=== PATIENT | female | born 1990 | race Caucasian/White ===

== ENCOUNTER 2016-08-03 10:06 | Emergency (ER) | payer OTHER ==
[2016-08-03 10:13] VITALS: BP 111/74; PULSE 80; TEMP 98.1
[2016-08-03 10:38] VITALS: RESP 16
--- NOTE | 2016-08-03 10:49 | ED ---
General Adult HPI - General Chief complaint: Upper Respiratory Infection Stated complaint: congestion Time Seen by Provider: 08/03/16 10:24 Source: patient, RN notes reviewed, old records reviewed Mode of arrival: ambulatory Limitations: no limitations - History of Present Illness Initial comments: This is a 25 female to the ED co being sick not feeling well with cough and congestion. Patient denies sick contacts or travel history, no recent fevers. Patient denies any chest pain denies any shortness of breath no bowel pain, denies . Patient's no modifying factors for symptoms at home, states her symptoms of progressively worsening to 3 days, again no nausea vomiting. No diarrhea. This feels upper respiratory infection, with congestion - Related Data Home Medications Medication Instructions Recorded Confirmed Dm/PE/Acetaminophen/Doxylamine 2 cap PO Q8H PRN 08/03/16 08/03/16 [[facility] [facility]] Previous Rx's Medication Instructions Recorded Amoxicillin 500 mg PO Q8H #30 capsule 08/03/16 Fluticasone Nasal [place] [Flonase 2 spr EA NOSTRIL DAILY #1 bottle 08/03/16 Nasal [place]] Pseudoephedrine HCl [Sudafed 240 mg PO BID #30 tab.er.24h 08/03/16 24-Hour] Allergies Allergy/AdvReac Type Severity Reaction Status Date / Time cefaclor [From Ceclor] Allergy Unknown Verified 08/03/16 10:35 Childhood diphenhydramine Allergy Unknown Verified 08/03/16 10:35 [From Benadryl] Childhood gluten Allergy Unknown Verified 08/03/16 10:35 Review of Systems ROS Statement: Those systems with pertinent positive or pertinent negative responses have been documented in the HPI. ROS Other: All systems not noted in ROS Statement are negative. Past Medical History Past Medical History: No Reported History History of Any Multi-Drug Resistant Organisms: None Reported Past Surgical History: No Surgical Hx Reported Past Psychological History: No Psychological Hx Reported Smoking Status: Current every day smoker Past Alcohol Use History: Occasional Past Drug Use History: None Reported General Exam Limitations: no limitations General appearance: alert, in no apparent distress Head exam: Present: atraumatic, normocephalic, normal inspection Eye exam: Present: normal appearance, PERRL, EOMI. Absent: scleral icterus, conjunctival injection, periorbital swelling ENT exam: Present: normal exam, mucous membranes moist Neck exam: Present: normal inspection. Absent: tenderness, meningismus, lymphadenopathy Respiratory exam: Present: normal lung sounds bilaterally. Absent: respiratory distress, wheezes, rales, rhonchi, stridor Cardiovascular Exam: Present: regular rate, normal rhythm, normal heart sounds. Absent: systolic murmur, diastolic murmur, rubs, gallop, clicks GI/Abdominal exam: Present: soft, normal bowel sounds. Absent: distended, tenderness, guarding, rebound, rigid Extremities exam: Present: normal inspection, full ROM, normal capillary refill. Absent: tenderness, pedal edema, joint swelling, calf tenderness Back exam: Present: normal inspection Neurological exam: Present: alert, oriented X3, CN II-XII intact Psychiatric exam: Present: normal affect, normal mood Skin exam: Present: warm, dry, intact, normal color. Absent: rash Course Vital Signs 08/03/16 08/03/16 10:11 10:35 Temperature 98.1 F Pulse Rate 80 Respiratory 20 16 Rate Blood Pressure 111/74 O2 Sat by Pulse 98 Oximetry Medical Decision Making - Medical Decision Making 25 female here for evaluation of upper respiratory infection, sinusitis. Patient given appropriate antibiotic and symptoms activity, this time is doing better no acute distress patient can be discharged home Disposition Clinical Impression: Upper respiratory infection, Sinusitis Disposition: HOME SELF-CARE Condition: Good Instructions: Sinusitis (ED) Prescriptions: Amoxicillin 500 mg PO Q8H #30 capsule Fluticasone Nasal [place] [Flonase Nasal [place]] 2 spr EA NOSTRIL DAILY #1 bottle Pseudoephedrine HCl [Sudafed 24-Hour] 240 mg PO BID #30 tab.er.24h Referrals: None,Stated [Primary Care Provider] - 1-2 days
== END 2016-08-03 10:58 | disposition home or self-care (01) ==
LOC: EC 10:06
DX: J01.90 Acute sinusitis, unspecified (principal); F17.200 Nicotine dependence, unspecified, uncomplicated; Z88.1 Allergy status to other antibiotic agents; Z88.8 Allergy status to other drugs, medicaments and biological substances
CPT/HCPCS: 99283

== ENCOUNTER 2016-11-27 14:34 | Emergency (ER) | payer OTHER ==
[2016-11-27 14:40] VITALS: BP 119/72; PULSE 108; RESP 18; TEMP 98
--- NOTE | 2016-11-27 14:59 | ED ---
General Adult HPI - General Chief complaint: Anxiety Stated complaint: Anxiety Time Seen by Provider: 11/27/16 14:47 Source: patient, RN notes reviewed Mode of arrival: ambulatory Limitations: no limitations - History of Present Illness Initial comments: Patient's a 26-year-old female who presents emergency room today with a chief complaint of increased anxiety. Patient states that she's had a history of anxiety for many years. She states it seems to be increasing more recently this past month. She states that she is going through approximately about 70% of her headache feeling very anxious. She states that there is not anything specific that seems to be triggering these episodes. She states in the past she 's really keep herself calm and that would help with the symptoms. She states recently seems to be increasing. She states does not have a family doctor was unsure which type attack states that she came to the emergency room. - Related Data Home Medications Medication Instructions Recorded Confirmed Dm/PE/Acetaminophen/Doxylamine 2 cap PO Q8H PRN 08/03/16 08/03/16 [[facility] [facility]] Previous Rx's Medication Instructions Recorded Amoxicillin 500 mg PO Q8H #30 capsule 08/03/16 Fluticasone Nasal [place] [Flonase 2 spr EA NOSTRIL DAILY #1 bottle 08/03/16 Nasal [place]] Pseudoephedrine HCl [Sudafed 240 mg PO BID #30 tab.er.24h 08/03/16 24-Hour] ALPRAZolam [Xanax] 0.5 mg PO BID PRN #10 tablet 11/27/16 Allergies Allergy/AdvReac Type Severity Reaction Status Date / Time cefaclor [From Ceclor] Allergy Unknown Verified 11/27/16 14:40 Childhood diphenhydramine Allergy Unknown Verified 11/27/16 14:40 [From Benadryl] Childhood gluten Allergy Unknown Verified 11/27/16 14:40 Review of Systems ROS Statement: Those systems with pertinent positive or pertinent negative responses have been documented in the HPI. ROS Other: All systems not noted in ROS Statement are negative. Past Medical History Past Medical History: No Reported History History of Any Multi-Drug Resistant Organisms: None Reported Past Surgical History: No Surgical Hx Reported Past Psychological History: Anxiety Smoking Status: Current every day smoker Past Alcohol Use History: Occasional Past Drug Use History: None Reported General Exam - General Exam Comments Initial Comments: General: The patient is awake and alert, in no distress, and does not appear acutely ill. Eye: Pupils are equal, round and reactive to light, extra-ocular movements are intact. No nystagmus. There is normal conjunctiva bilaterally. No signs of icterus. Ears, nose, mouth and throat: There are moist mucous membranes and no oral lesions. Neck: The neck is supple, there is no tenderness or JVD. Cardiovascular: There is a regular rate and rhythm. No murmur, rub or gallop is appreciated. Respiratory: Lungs are clear to auscultation, respirations are non-labored, breath sounds are equal. No wheezes, stridor, rales, or rhonchi. Musculoskeletal: Normal ROM, no tenderness. Strength 5/5. Sensation intact. Pulses equal bilaterally 2+. Neurological: A&O x 3. CN II-XII intact, There are no obvious motor or sensory deficits. Coordination appears grossly intact. Speech is normal. Skin: Skin is warm and dry and no rashes or lesions are noted. Psychiatric: Cooperative, appropriate mood & affect, normal judgment. Limitations: no limitations Course Vital Signs 11/27/16 14:37 Temperature 98.0 F Pulse Rate 108 H Respiratory 18 Rate Blood Pressure 119/72 O2 Sat by Pulse 97 Oximetry Medical Decision Making - Medical Decision Making Patient examined here in the emergency room show no signs of distress. She denies any complaints currently at this time. She states she has been having these episodes more frequently. She states she's never been on medication. States she does not have a family doctor. Was discussed with patient about the effects of medication. Advised patient possibly follow-up with a therapist in constant persist she has seen in the past without much help. Patient given a short prescription of Xanax here in the emergency room advised that it may make her drowsy and to not drive while using this medication. Advised to follow-up with family doctor for further evaluation and medications. Advised return for any other concerns. She states understanding and is in agreement. Disposition Clinical Impression: Acute anxiety Disposition: HOME SELF-CARE Condition: Good Instructions: Generalized Anxiety Disorder (ED) Additional Instructions: Please use medication as prescribed and be aware that it may make you drowsy. Please follow-up with the family doctor over the next 2-5 days as discussed. Please return here to emergency room if symptoms increase or worsen or for any other concerns. Prescriptions: ALPRAZolam [Xanax] 0.5 mg PO BID PRN #10 tablet PRN Reason: Anxiety Referrals: None,Stated [Primary Care Provider] - 1-2 days Jael Betts MD [STAFF PHYSICIAN] - 1-2 days Time of Disposition: 14:57
== END 2016-11-27 15:10 | disposition home or self-care (01) ==
LOC: EC 14:34
DX: F41.9 Anxiety disorder, unspecified (principal); R51 Headache; F17.200 Nicotine dependence, unspecified, uncomplicated; Z88.1 Allergy status to other antibiotic agents; Z88.8 Allergy status to other drugs, medicaments and biological substances; Z91.018 Allergy to other foods
CPT/HCPCS: 99283

== ENCOUNTER 2017-02-22 16:17 | Emergency (ER) | payer OTHER ==
[2017-02-22 16:22] VITALS: BP 117/71; PULSE 74; RESP 18; TEMP 99
--- NOTE | 2017-02-22 16:30 | ED ---
URI HPI - General Chief Complaint: Upper Respiratory Infection Stated Complaint: Cold/congestion Time Seen by Provider: 02/22/17 16:25 Source: patient, RN notes reviewed Mode of arrival: ambulatory Limitations: no limitations - History of Present Illness Initial Comments: This a 26-year-old female presents emergency Department chief complaint of nasal congestion and cough for last 3 days. Patient states it started with sore throat which turned into sinus congestion. Suture sore throat has improved at this time. She states she's tried some [id number] medications minimal relief. Denies fever, chills, headache or dizziness. She states her usual. She states cough is worse when she eats upper morning and seems to subside throughout the day. Patient denies any known sick contacts. - Related Data Previous Rx's Medication Instructions Recorded ALPRAZolam [Xanax] 0.5 mg PO BID PRN #10 tablet 11/27/16 Fluticasone Nasal [place] [Flonase 2 spr EA NOSTRIL DAILY #1 bottle 02/22/17 Nasal [place]] Promethaz-Cod 6.25-10 mg/5 ml 5 ml PO Q6HR PRN #120 ml 02/22/17 [Phenergan with Codeine] Pseudoephedrine 12Hr [Sudafed 12 120 mg PO Q12H #1 box 02/22/17 Hour] Allergies Allergy/AdvReac Type Severity Reaction Status Date / Time cefaclor [From Ceclor] Allergy Unknown Verified 02/22/17 16:22 Childhood diphenhydramine Allergy Unknown Verified 02/22/17 16:22 [From Benadryl] Childhood gluten Allergy Unknown Verified 02/22/17 16:22 Review of Systems ROS Statement: Those systems with pertinent positive or pertinent negative responses have been documented in the HPI. ROS Other: All systems not noted in ROS Statement are negative. Past Medical History Past Medical History: No Reported History History of Any Multi-Drug Resistant Organisms: MRSA Date of last positivie culture/infection: 2014 MDRO Source:: Right arm Past Surgical History: Tonsillectomy Past Psychological History: Anxiety Smoking Status: Current every day smoker Past Alcohol Use History: Occasional Past Drug Use History: None Reported General Exam Limitations: no limitations General appearance: alert, in no apparent distress Head exam: Present: atraumatic, normocephalic, normal inspection Eye exam: Present: normal appearance, PERRL, EOMI. Absent: scleral icterus, conjunctival injection, periorbital swelling ENT exam: Present: normal oropharynx, mucous membranes moist, TM's normal bilaterally, normal external ear exam. Absent: normal exam (Minimal nasal congestion) Neck exam: Present: normal inspection, full ROM. Absent: tenderness, meningismus, lymphadenopathy Respiratory exam: Present: normal lung sounds bilaterally. Absent: respiratory distress, wheezes, rales, rhonchi, stridor Cardiovascular Exam: Present: regular rate, normal rhythm, normal heart sounds. Absent: systolic murmur, diastolic murmur, rubs, gallop, clicks Course Vital Signs 02/22/17 16:19 Temperature 99.0 F Pulse Rate 74 Respiratory 18 Rate Blood Pressure 117/71 O2 Sat by Pulse 100 Oximetry Medical Decision Making - Medical Decision Making 26-year-old female presented for URI symptoms. Patient does not have any signs of acute bacterial infection. Patient's symptoms have been present last 3 days. Patient has a viral URI and will be prescribed medications help her symptoms at this time she is advised to increase her fluids and follow-up with primary care physician. Disposition Clinical Impression: Upper respiratory infection Disposition: HOME SELF-CARE Condition: Stable Instructions: Upper Respiratory Infection (ED) Additional Instructions: Please return to the Emergency Department if symptoms worsen or any other concerns. Prescriptions: Fluticasone Nasal [place] [Flonase Nasal [place]] 2 spr EA NOSTRIL DAILY #1 bottle Promethaz-Cod 6.25-10 mg/5 ml [Phenergan with Codeine] 5 ml PO Q6HR PRN #120 ml PRN Reason: Cough Pseudoephedrine 12Hr [Sudafed 12 Hour] 120 mg PO Q12H #1 box Referrals: None,Stated [Primary Care Provider] - 1-2 days Time of Disposition: 16:30
== END 2017-02-22 16:54 | disposition home or self-care (01) ==
LOC: EC 16:17
DX: J06.9 Acute upper respiratory infection, unspecified (principal); F17.200 Nicotine dependence, unspecified, uncomplicated; Z86.14 Personal history of Methicillin resistant Staphylococcus aureus infection; Z88.1 Allergy status to other antibiotic agents; Z88.8 Allergy status to other drugs, medicaments and biological substances
CPT/HCPCS: 99283

== ENCOUNTER 2017-05-09 14:04 | Emergency (ER) | payer OTHER ==
[2017-05-09 14:11] VITALS: BP 118/59; PULSE 97; RESP 18; TEMP 98
--- NOTE | 2017-05-09 15:25 | ED ---
General Adult HPI - General Chief complaint: Back Pain/Injury Stated complaint: Back Pain Time Seen by Provider: 05/09/17 14:39 Source: patient, RN notes reviewed Mode of arrival: ambulatory Limitations: no limitations - History of Present Illness Initial comments: 26-year-old female presents emergency department with a chief complaint of low back pain. Patient states she woke up 2 days ago and when she went to get out of bed and she started to have pain in her back. Patient states that she is not having loss by bladder function or any saddle anesthesia with this. Patient denies any nausea vomiting any changes in urination. Patient states that she does get back pain from time to time but she was concerned because she just continued to have this discomfort she was at work today and it was making her daughter works and she decided to come to be seen. She states is in her lower back. She states that moving bending twisting makes the pain worse. She denies any other symptoms at this time. She states the pain is moderate there is some radiation link sensory movements. Patient denies any recent fever, chills, shortness of breath, chest pain, abdominal pain, nausea vomiting, numbness or tingling, dysuria or hematuria, constipation or diarrhea, headaches or visual changes, or any other current symptoms. - Related Data Previous Rx's Medication Instructions Recorded ALPRAZolam [Xanax] 0.5 mg PO BID PRN #10 tablet 11/27/16 Ibuprofen [Motrin] 600 mg PO Q6HR PRN #20 tab 05/09/17 Orphenadrine [Norflex] 100 mg PO Q12H #10 tablet.er 05/09/17 Allergies Allergy/AdvReac Type Severity Reaction Status Date / Time cefaclor [From Ceclor] Allergy Unknown Verified 05/09/17 14:09 Childhood diphenhydramine Allergy Unknown Verified 05/09/17 14:09 [From Benadryl] Childhood gluten Allergy Unknown Verified 05/09/17 14:09 Review of Systems ROS Statement: Those systems with pertinent positive or pertinent negative responses have been documented in the HPI. ROS Other: All systems not noted in ROS Statement are negative. Past Medical History Past Medical History: No Reported History History of Any Multi-Drug Resistant Organisms: MRSA Date of last positivie culture/infection: 2014 MDRO Source:: Right arm Past Surgical History: Tonsillectomy Past Psychological History: Anxiety Smoking Status: Current every day smoker Past Alcohol Use History: Occasional Past Drug Use History: None Reported General Exam Limitations: no limitations General appearance: alert, in no apparent distress ENT exam: Present: normal exam, mucous membranes moist Neck exam: Present: normal inspection. Absent: tenderness, meningismus, lymphadenopathy Respiratory exam: Present: normal lung sounds bilaterally. Absent: respiratory distress, wheezes, rales, rhonchi, stridor Cardiovascular Exam: Present: regular rate, normal rhythm, normal heart sounds. Absent: systolic murmur, diastolic murmur, rubs, gallop, clicks Back exam: Present: normal inspection, full ROM, other (PositiveLateral straight leg raise). Absent: tenderness Neurological exam: Present: alert, oriented X3 Psychiatric exam: Present: normal affect, normal mood Skin exam: Present: warm, dry, intact, normal color. Absent: rash Course Vital Signs 05/09/17 14:09 Temperature 98.0 F Pulse Rate 97 Respiratory 18 Rate Blood Pressure 118/59 O2 Sat by Pulse 100 Oximetry Medical Decision Making - Medical Decision Making 26-year-old female presents with what appears to be lumbar strain. This time we discussed anti-inflammatories and muscle relaxers for home. We discussed follow-up return parameters all results. Patient stated she understood and she is given this plan. All questions have been answered. She will be discharged. - Lab Data Lab Results 05/09/17 Range/Units 14:54 Urine HCG, Qual Not Detected (Not Detectd) - Radiology Data Radiology results: report reviewed, image reviewed Disposition Clinical Impression: Lumbar strain Disposition: HOME SELF-CARE Condition: Stable Instructions: Low Back Strain (ED), Lower Back Exercises (ED) Additional Instructions: Please use medication as discussed. Please follow up with family doctor if symptoms have not improved over the next two days. Please return to the emergency room if your symptoms increase or worsen or for any other concerns. Prescriptions: Ibuprofen [Motrin] 600 mg PO Q6HR PRN #20 tab PRN Reason: Pain Orphenadrine [Norflex] 100 mg PO Q12H #10 tablet.er Referrals: Carlo Savage MD [STAFF PHYSICIAN] - 1-2 days Time of Disposition: 15:32
--- NOTE | 2017-05-09 15:28 | XR ---
Lumbar spine HISTORY: Low back pain 3 views of the lumbar spine Lumbar vertebral bodies show preserved height, alignment, and bone mineralization. Some mild dextrosc oliosis noted at L4. Loss of disc height present L5-S1, L4-5. IMPRESSION: There may be degenerative disc disease, there is possibly scoliosis, correlate, consider lumbar MRI
== END 2017-05-09 15:56 | disposition home or self-care (01) ==
LOC: EC 14:04
DX: S39.012A Strain of muscle, fascia and tendon of lower back, initial encounter (principal); F17.200 Nicotine dependence, unspecified, uncomplicated; Z86.14 Personal history of Methicillin resistant Staphylococcus aureus infection; Z88.1 Allergy status to other antibiotic agents; Z88.8 Allergy status to other drugs, medicaments and biological substances; X58.XXXA Exposure to other specified factors, initial encounter
CPT/HCPCS: 72100; 81025; 99283

== ENCOUNTER 2017-05-13 16:24 | Emergency (ER) | payer OTHER ==
[2017-05-13] MEDS ORDERED: SODIUM CHLORIDE 0.9% 1,000 ML IV STA (17:10)
[2017-05-13] MEDS ORDERED: KETOROLAC 30 MG/ML 1 ML VIAL IVP STA (17:10)
[2017-05-13] MEDS ORDERED: SODIUM CHLORIDE 0.9% 500 ML IV STA (17:10)
--- NOTE | 2017-05-13 17:15 | ED ---
Back Pain HPI - General Chief Complaint: Back Pain/Injury Stated Complaint: Back Pain Time Seen by Provider: 05/13/17 17:01 Source: patient, RN notes reviewed, old records reviewed Limitations: no limitations - History of Present Illness Initial Comments: Patient is a 26-year-old female presents emergency department for revisit of her back pain. Patient reports that she was seen earlier this week and discharged with Motrin and muscle relaxers. She reports that her pain is continuing to persist. She states is worse with certain movements including twisting and straight leg raises. Patient states that she does a job or she is on her feet all the time. Patient reports that she's also had some fevers and feels chilled. She questions to possible urinary symptoms as in dysuria. She states that occasionally her back will seem to go numb but still be in pain at the same time. Patient states that she's had no saddle anesthesias, denies any chest pain, shortness of breath, nausea or vomiting. Patient states that she has had some occasional lower abdominal pain, denies any specific pain or pressure. - Related Data Previous Rx's Medication Instructions Recorded ALPRAZolam [Xanax] 0.5 mg PO BID PRN #10 tablet 11/27/16 Ibuprofen [Motrin] 600 mg PO Q6HR PRN #20 tab 05/09/17 Orphenadrine [Norflex] 100 mg PO Q12H #10 tablet.er 05/09/17 Cyclobenzaprine [Flexeril] 10 mg PO TID #15 tab 05/13/17 traMADol HCl [Ultram] 50 mg PO Q6H PRN #15 tab 05/13/17 Allergies Allergy/AdvReac Type Severity Reaction Status Date / Time cefaclor [From Ceclor] Allergy Unknown Verified 05/13/17 16:44 Childhood diphenhydramine Allergy Unknown Verified 05/13/17 16:44 [From Benadryl] Childhood gluten Allergy Unknown Verified 05/13/17 16:44 Review of Systems ROS Statement: Those systems with pertinent positive or pertinent negative responses have been documented in the HPI. ROS Other: All systems not noted in ROS Statement are negative. Past Medical History Past Medical History: No Reported History History of Any Multi-Drug Resistant Organisms: MRSA Date of last positivie culture/infection: 2014 MDRO Source:: Right arm Past Surgical History: Tonsillectomy Past Psychological History: Anxiety Smoking Status: Current every day smoker Past Alcohol Use History: Occasional Past Drug Use History: None Reported General Exam - General Exam Comments Initial Comments: 26-year-old female. No acute distress. Limitations: no limitations General appearance: alert, in no apparent distress Head exam: Present: atraumatic, normocephalic, normal inspection Eye exam: Present: normal appearance, PERRL, EOMI. Absent: scleral icterus, conjunctival injection, periorbital swelling ENT exam: Present: normal exam, mucous membranes moist Neck exam: Present: normal inspection. Absent: tenderness, meningismus, lymphadenopathy Respiratory exam: Present: normal lung sounds bilaterally. Absent: respiratory distress, wheezes, rales, rhonchi, stridor Cardiovascular Exam: Present: regular rate, normal rhythm, normal heart sounds. Absent: systolic murmur, diastolic murmur, rubs, gallop, clicks GI/Abdominal exam: Present: soft, normal bowel sounds. Absent: distended, tenderness, guarding, rebound, rigid Extremities exam: Present: normal inspection, full ROM, normal capillary refill. Absent: tenderness, pedal edema, joint swelling, calf tenderness Back exam: Present: normal inspection, tenderness (Patient reports lumbar spinal tenderness.), other (Positive straight leg test bilaterally.) Neurological exam: Present: alert, oriented X3, CN II-XII intact Psychiatric exam: Present: normal affect, normal mood Skin exam: Present: warm, dry, intact, normal color. Absent: rash Course Vital Signs 05/13/17 16:25 Temperature 98.4 F Pulse Rate 83 Respiratory 16 Rate Blood Pressure 111/71 O2 Sat by Pulse 99 Oximetry - Reevaluation(s) Reevaluation #1: 05/13/17 18:17 Is reevaluated this time resting comfortably after the fluids and Toradol. She reports she's feeling better at this time. Patient states that she wants to go home. Discussed that all of her lab work was reviewed and normal. Discussed that I believe her pain is osseous Nature and 9 Urinary Related. Medical Decision Making - Medical Decision Making 26-year-old female presents emergency Department chief complaint of worsening lower back pain. Worse with certain movements. She also complains of some chills, and is questioning she has urinary tract infection. This time patient' s urinalysis is negative for any acute process. Patient's did also complain of a occasional chills, CBC was within normal limits, kidney function within normal limits. She has no CVA tenderness. Discussed this point I think the patient's pain is osseous certified rehabilitation counselor nature. She was reevaluated and nontender on the abdomen. Patient will be discharged at this time with close follow-up with her primary care provider. She states that she has an appointment on Monday. She'll be discharged with a continue prescribed for muscle relaxers as well as a short course of pain medicine. Patient agrees to applying heat and ice. Discussed strict return parameters. - Lab Data Result diagrams: 05/13/17 17:28 05/13/17 17:28 Lab Results 05/13/17 05/13/17 05/13/17 Range/Units 17:00 17:00 17:28 WBC 9.9 (3.8-10.6) k/uL RBC 5.12 (3.80-5.40) m/uL Hgb 15.2 (11.4-16.0) gm/dL Hct 45.1 (34.0-46.0) % MCV 88.0 (80.0-100.0) fL MCH 29.6 (25.0-35.0) pg MCHC 33.6 (31.0-37.0) g/dL RDW 13.6 (11.5-15.5) % Plt Count 292 (150-450) k/uL Neutrophils % 53 % Lymphocytes % 36 % Monocytes % 7 % Eosinophils % 2 % Basophils % 1 % Neutrophils # 5.3 (1.3-7.7) k/uL Lymphocytes # 3.5 (1.0-4.8) k/uL Monocytes # 0.6 (0-1.0) k/uL Eosinophils # 0.2 (0-0.7) k/uL Basophils # 0.1 (0-0.2) k/uL Sodium (137-145) mmol/L Potassium (3.5-5.1) mmol/L Chloride (98-107) mmol/L Carbon Dioxide (22-30) mmol/L Anion Gap mmol/L BUN (7-17) mg/dL Creatinine (0.52-1.04) mg/dL Est GFR (MDRD) Af Amer (>60 ml/min/1.73 sqM) Est GFR (MDRD) Non-Af (>60 ml/min/1.73 sqM) Glucose (74-99) mg/dL Calcium (8.4-10.2) mg/dL Total Bilirubin (0.2-1.3) mg/dL AST (14-36) U/L ALT (9-52) U/L Alkaline Phosphatase (38-126) U/L Total Protein (6.3-8.2) g/dL Albumin (3.5-5.0) g/dL Urine Color Colorless Urine Appearance Clear (Clear) Urine pH 6.5 (5.0-8.0) Ur Specific [place] 1.004 (1.001-1.035) Urine Protein Negative (Negative) Urine Glucose (UA) Negative (Negative) Urine Ketones Negative (Negative) Urine Blood Negative (Negative) Urine Nitrite Negative (Negative) Urine Bilirubin Negative (Negative) Urine Urobilinogen <2.0 (<2.0) mg/dL Ur Leukocyte Esterase Negative (Negative) Urine HCG, Qual Not Detected (Not Detectd) 05/13/17 Range/Units 17:28 WBC (3.8-10.6) k/uL RBC (3.80-5.40) m/uL Hgb (11.4-16.0) gm/dL Hct (34.0-46.0) % MCV (80.0-100.0) fL MCH (25.0-35.0) pg MCHC (31.0-37.0) g/dL RDW (11.5-15.5) % Plt Count (150-450) k/uL Neutrophils % % Lymphocytes % % Monocytes % % Eosinophils % % Basophils % % Neutrophils # (1.3-7.7) k/uL Lymphocytes # (1.0-4.8) k/uL Monocytes # (0-1.0) k/uL Eosinophils # (0-0.7) k/uL Basophils # (0-0.2) k/uL Sodium 138 (137-145) mmol/L Potassium 3.6 (3.5-5.1) mmol/L Chloride 108 H (98-107) mmol/L Carbon Dioxide 21 L (22-30) mmol/L Anion Gap 9 mmol/L BUN 12 (7-17) mg/dL Creatinine 0.60 (0.52-1.04) mg/dL Est GFR (MDRD) Af Amer >60 (>60 ml/min/1.73 sqM) Est GFR (MDRD) Non-Af >60 (>60 ml/min/1.73 sqM) Glucose 79 (74-99) mg/dL Calcium 9.1 (8.4-10.2) mg/dL Total Bilirubin 0.4 (0.2-1.3) mg/dL AST 21 (14-36) U/L ALT 33 (9-52) U/L Alkaline Phosphatase 52 (38-126) U/L Total Protein 7.3 (6.3-8.2) g/dL Albumin 4.4 (3.5-5.0) g/dL Urine Color Urine Appearance (Clear) Urine pH (5.0-8.0) Ur Specific [place] (1.001-1.035) Urine Protein (Negative) Urine Glucose (UA) (Negative) Urine Ketones (Negative) Urine Blood (Negative) Urine Nitrite (Negative) Urine Bilirubin (Negative) Urine Urobilinogen (<2.0) mg/dL Ur Leukocyte Esterase (Negative) Urine HCG, Qual (Not Detectd) - Radiology Data Radiology results: report reviewed Disposition Clinical Impression: Mechanical back pain, Degenerative disc disease Disposition: HOME SELF-CARE Condition: Good Instructions: Acute Low Back Pain (ED) Additional Instructions: Recommended continued to take antiinflammatory medicine such as Motrin. You can take the muscle relaxers and pain medicine for worsening pain. Recommended close follow-up with primary care provider. Recommended also applying up with orthopedic perinatal specialist. Return to emergency department if any alarming signs or symptoms occur. Prescriptions: Cyclobenzaprine [Flexeril] 10 mg PO TID #15 tab traMADol HCl [Ultram] 50 mg PO Q6H PRN #15 tab PRN Reason: Pain Referrals: None,Stated [Primary Care Provider] - 1-2 days Hakan Nails DO [REFERRING] - 1-2 days Mars Mahmood DO [Doctor of Osteopathic Medicine] - 1-2 days Time of Disposition: 18:21
[2017-05-13 17:43] LABS: Basophils # (A) 0.1 k/uL (0-0.2); Basophils % (A) 1 %; CH 30.3; CHCM 34.6; Eosinophils # (A) 0.2 k/uL (0-0.7); Eosinophils % (A) 2 %; HCT 45.1 % (34.0-46.0); HDW 2.26; HGB 15.2 gm/dL (11.4-16.0); Luc # (Auto) 0.14; Luc % (Auto) 2; Lymphocytes # (A) 3.5 k/uL (1.0-4.8); Lymphocytes % (A) 36 %; MCH 29.6 pg (25.0-35.0); MCHC 33.6 g/dL (31.0-37.0); Mean Platelet Volume 7.6; Monocytes # (A) 0.6 k/uL (0-1.0); Monocytes % (A) 7 %; Neutrophils # (A) 5.3 k/uL (1.3-7.7); Neutrophils % (A) 53 %; RBC 5.12 m/uL (3.80-5.40); RDW 13.6 % (11.5-15.5); WBC 9.9 k/uL (3.8-10.6); WBC (Perox) 9.56
[2017-05-13 17:48] LABS: Appearance,Urine Clear (Clear); Bilirubin,Urine Negative (Negative); Glucose,Urine (UA) Negative (Negative); Ketones,Urine Negative (Negative); Leukocyte Esterase,Urine Negative (Negative); Nitrite,Urine Negative (Negative); PH, Urine 6.5 (5.0-8.0); Protein,Urine Negative (Negative); Specific Gravity,Urine 1.004 (1.001-1.035); UA Billing (MACRO vs. MICRO) CHEM; Urobilinogen,Urine <2.0 mg/dL (<2.0)
[2017-05-13 17:53] LABS: ALT 33 U/L (9-52); AST 21 U/L (14-36); Alkaline Phosphatase 52 U/L (38-126); Anion Gap 9 mmol/L; Blood Urea Nitrogen 12 mg/dL (7-17); Calcium 9.1 mg/dL (8.4-10.2); Carbon Dioxide 21 mmol/L (22-30); Chloride 108 mmol/L (98-107); Glucose 79 mg/dL (74-99); Non-African American GFR(MDRD) >60 (>60 ml/min/1.73 sqM); Potassium 3.6 mmol/L (3.5-5.1); Sodium 138 mmol/L (137-145); Total Bilirubin 0.4 mg/dL (0.2-1.3); Total Protein 7.3 g/dL (6.3-8.2)
[2017-05-13 18:34] VITALS: BP 118/78; PULSE 84; RESP 18; TEMP 97.4
== END 2017-05-13 18:34 | disposition home or self-care (01) ==
LOC: EC 16:24
DX: M51.36 Other intervertebral disc degeneration, lumbar region (principal); R50.9 Fever, unspecified; R10.30 Lower abdominal pain, unspecified; F41.9 Anxiety disorder, unspecified; F17.200 Nicotine dependence, unspecified, uncomplicated; Z86.14 Personal history of Methicillin resistant Staphylococcus aureus infection; Z79.899 Other long term (current) drug therapy; Z88.8 Allergy status to other drugs, medicaments and biological substances; Z88.1 Allergy status to other antibiotic agents; Z91.048 Other nonmedicinal substance allergy status
CPT/HCPCS: 36415; 80053; 85025; 81003; 81025; 87086; 99284; 96374; 96361; J1885

== ENCOUNTER 2018-04-04 15:30 | Emergency (ER) | payer OTHER ==
[2018-04-04 15:46] VITALS: BP 115/81; PULSE 89; RESP 18; TEMP 98.4
[2018-04-04] MEDS ORDERED: ACET/COD 300 MG/30 MG STARTER PACK 6 TAB BTL PO STA (16:01)
--- NOTE | 2018-04-04 16:02 | ED ---
Back Pain HPI - General Chief Complaint: Back Pain/Injury Stated Complaint: Back pain Time Seen by Provider: 04/04/18 15:48 Source: patient, RN notes reviewed Mode of arrival: ambulatory Limitations: no limitations - History of Present Illness Initial Comments: 27-year-old female presents emergency Department chief complaint of lumbar back pain. Patient states she had issues approximate one year ago with some her symptoms. Patient was 47 MRI though she thought she was at that time. Patient states that she currently is on the progesterone and has no chance . Patient states that pain started over the last few days her lumbar region. She states some pain rates towards her hip but otherwise has no lower extremity pain, weakness or paresthesias. Patient denies any abdominal pain. Denies any dysuria no hematuria. - Related Data Previous Rx's Medication Instructions Recorded ALPRAZolam [Xanax] 0.5 mg PO BID PRN #10 tablet 11/27/16 Ibuprofen [Motrin] 600 mg PO Q6HR PRN #20 tab 05/09/17 Orphenadrine [Norflex] 100 mg PO Q12H #10 tablet.er 05/09/17 Cyclobenzaprine [Flexeril] 10 mg PO TID #15 tab 05/13/17 traMADol HCl [Ultram] 50 mg PO Q6H PRN #15 tab 05/13/17 Cyclobenzaprine [Flexeril] 10 mg PO TID PRN #15 tab 04/04/18 predniSONE 50 mg PO DAILY #5 tab 04/04/18 Allergies Allergy/AdvReac Type Severity Reaction Status Date / Time cefaclor [From Ceclor] Allergy Unknown Verified 04/04/18 15:46 Childhood diphenhydramine Allergy Unknown Verified 04/04/18 15:46 [From Benadryl] Childhood gluten Allergy Unknown Verified 04/04/18 15:46 Review of Systems ROS Statement: Those systems with pertinent positive or pertinent negative responses have been documented in the HPI. ROS Other: All systems not noted in ROS Statement are negative. Past Medical History Past Medical History: No Reported History History of Any Multi-Drug Resistant Organisms: MRSA Date of last positivie culture/infection: 2014 MDRO Source:: Right arm Past Surgical History: Tonsillectomy Additional Past Surgical History / Comment(s): Lumbar back pain Past Psychological History: Anxiety Smoking Status: Current every day smoker Past Alcohol Use History: Occasional Past Drug Use History: None Reported General Exam Limitations: no limitations General appearance: alert, in no apparent distress Head exam: Present: atraumatic, normocephalic, normal inspection Respiratory exam: Present: normal lung sounds bilaterally. Absent: respiratory distress, wheezes, rales, rhonchi, stridor Cardiovascular Exam: Present: regular rate, normal rhythm, normal heart sounds. Absent: systolic murmur, diastolic murmur, rubs, gallop, clicks GI/Abdominal exam: Present: soft, normal bowel sounds. Absent: distended, tenderness, guarding, rebound, rigid Extremities exam: Present: full ROM, other. Absent: tenderness Back exam: Present: full ROM, paraspinal tenderness, other. Absent: tenderness , CVA tenderness (R), CVA tenderness (L), vertebral tenderness Skin exam: Present: warm, dry, intact, normal color. Absent: rash Course Vital Signs 04/04/18 15:45 Temperature 98.4 F Pulse Rate 89 Respiratory 18 Rate Blood Pressure 115/81 O2 Sat by Pulse 99 Oximetry Medical Decision Making - Medical Decision Making 27-year-old female presented for low back pain. Patient has a lumbar strain. She will follow-up with MRI secondary to ongoing issues in history of. Patient we treated with prednisone, muscle relaxers and pain medication. No red flag symptoms Disposition Clinical Impression: Strain of lumbar region Disposition: HOME SELF-CARE Condition: Stable Instructions: Acute Low Back Pain (ED) Additional Instructions: Please return to the Emergency Department if symptoms worsen or any other concerns. Prescriptions: Cyclobenzaprine [Flexeril] 10 mg PO TID PRN #15 tab PRN Reason: Muscle Spasm predniSONE 50 mg PO DAILY #5 tab Is patient prescribed a controlled substance at d/c from ED?: No Referrals: None,Stated [Primary Care Provider] - 1-2 days Mars Mahmood DO [Doctor of Osteopathic Medicine] - 1-2 days Time of Disposition: 16:02
== END 2018-04-04 16:18 | disposition home or self-care (01) ==
LOC: EC 15:30
DX: S39.012A Strain of muscle, fascia and tendon of lower back, initial encounter (principal); F17.200 Nicotine dependence, unspecified, uncomplicated; Z88.1 Allergy status to other antibiotic agents; Z88.8 Allergy status to other drugs, medicaments and biological substances; Z91.018 Allergy to other foods; X58.XXXA Exposure to other specified factors, initial encounter
CPT/HCPCS: 99283

== ENCOUNTER 2019-04-20 07:58 | Emergency (ER) | payer OTHER ==
[2019-04-20 08:02] VITALS: BP 109/70; PULSE 107; RESP 16; TEMP 97.9
[2019-04-20] MEDS ORDERED: ACET/COD 300 MG/30 MG STARTER PACK 6 TAB BTL PO STA (08:14)
--- NOTE | 2019-04-20 08:16 | ED ---
Back Pain HPI - General Chief Complaint: Back Pain/Injury Stated Complaint: Back Pain Time Seen by Provider: 04/20/19 08:05 Source: patient, family, RN notes reviewed Mode of arrival: ambulatory Limitations: no limitations - History of Present Illness Initial Comments: 28-year-old female presents emergency Department chief complaint low back pain. Patient states has been hurting over the last week states he was getting better but to go back to work yesterday. Patient states that she has to lift stuff as she is a fracture. Patient states that the pain worsens point where rates her right low back to her right hip region and down towards her knee. Patient denies any bowel, bladder incontinence or retention. Patient states she's had injury like this in the past. Patient states she has taken some old Flexeril with no relief along with ibuprofen. Patient states she does not feel that she can complete her job at this time due to the pain. - Related Data Previous Rx's Medication Instructions Recorded ALPRAZolam [Xanax] 0.5 mg PO BID PRN #10 tablet 11/27/16 Ibuprofen [Motrin] 600 mg PO Q6HR PRN #20 tab 05/09/17 Orphenadrine [Norflex] 100 mg PO Q12H #10 tablet.er 05/09/17 Cyclobenzaprine [Flexeril] 10 mg PO TID #15 tab 05/13/17 traMADol HCl [Ultram] 50 mg PO Q6H PRN #15 tab 05/13/17 Cyclobenzaprine [Flexeril] 10 mg PO TID PRN #15 tab 04/04/18 predniSONE 50 mg PO DAILY #5 tab 04/04/18 Ibuprofen [Motrin] 600 mg PO Q8HR PRN #20 tab 04/20/19 Orphenadrine [Norflex] 100 mg PO Q12H #14 tablet.er 04/20/19 Allergies Allergy/AdvReac Type Severity Reaction Status Date / Time cefaclor [From Ceclor] Allergy Unknown Verified 04/20/19 08:02 Childhood diphenhydramine Allergy Unknown Verified 04/20/19 08:02 [From Benadryl] Childhood gluten Allergy Unknown Verified 04/20/19 08:02 Review of Systems ROS Statement: Those systems with pertinent positive or pertinent negative responses have been documented in the HPI. ROS Other: All systems not noted in ROS Statement are negative. Past Medical History Past Medical History: No Reported History History of Any Multi-Drug Resistant Organisms: MRSA Date of last positivie culture/infection: 2014 MDRO Source:: Right arm Past Surgical History: Tonsillectomy Additional Past Surgical History / Comment(s): Lumbar back pain Past Psychological History: Anxiety Smoking Status: Current every day smoker Past Alcohol Use History: Occasional Past Drug Use History: None Reported General Exam General appearance: alert, in no apparent distress Head exam: Present: atraumatic, normocephalic, normal inspection Eye exam: Present: normal appearance, PERRL, EOMI. Absent: scleral icterus, conjunctival injection, periorbital swelling Respiratory exam: Present: normal lung sounds bilaterally. Absent: respiratory distress, wheezes, rales, rhonchi, stridor Cardiovascular Exam: Present: regular rate, normal rhythm, normal heart sounds. Absent: systolic murmur, diastolic murmur, rubs, gallop, clicks GI/Abdominal exam: Present: soft, normal bowel sounds. Absent: distended, tenderness, guarding, rebound, rigid Extremities exam: Present: other (Lower extremity strength equal bilaterally neurovascular intact equal color equal warmth with) Back exam: Present: normal inspection, full ROM, tenderness (Right lumbar paraspinal), paraspinal tenderness, other (Pain with right straight leg raise). Absent: vertebral tenderness Neurological exam: Present: alert, oriented X3, CN II-XII intact, reflexes normal. Absent: motor sensory deficit Skin exam: Present: warm, dry, intact, normal color. Absent: rash Course Vital Signs 04/20/19 08:00 Temperature 97.9 F Pulse Rate 107 H Respiratory 16 Rate Blood Pressure 109/70 O2 Sat by Pulse 98 Oximetry Medical Decision Making - Medical Decision Making 28-year-old female presented for low back pain. Patient has typical lumbar strain with no red flag symptoms. She has had x-rays in the past does not require x-rays at this time. Patient will be started Concerta treatment. 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 Disposition Clinical Impression: Strain of lumbar region, Lumbar radiculopathy Disposition: HOME SELF-CARE Condition: Stable Instructions (If sedation given, give patient instructions): Acute Low Back Pain (ED) Additional Instructions: Please return to the Emergency Department if symptoms worsen or any other chantell rns. Prescriptions: Ibuprofen [Motrin] 600 mg PO Q8HR PRN #20 tab PRN Reason: Pain Orphenadrine [Norflex] 100 mg PO Q12H #14 tablet.er Is patient prescribed a controlled substance at d/c from ED?: No Referrals: None,Stated [Primary Care Provider] - 1-2 days Time of Disposition: 08:16
== END 2019-04-20 08:20 | disposition home or self-care (01) ==
LOC: EC 07:58
DX: S39.012A Strain of muscle, fascia and tendon of lower back, initial encounter (principal); M54.16 Radiculopathy, lumbar region; F17.200 Nicotine dependence, unspecified, uncomplicated; Z88.1 Allergy status to other antibiotic agents; Z88.8 Allergy status to other drugs, medicaments and biological substances; Z91.018 Allergy to other foods; Z86.14 Personal history of Methicillin resistant Staphylococcus aureus infection; Z98.890 Other specified postprocedural states; X50.0XXA Overexertion from strenuous movement or load, initial encounter; Y92.69 Other specified industrial and construction area as the place of occurrence of the external cause
CPT/HCPCS: 99283

== ENCOUNTER 2021-01-01 17:22 | Emergency (ER) | payer OTHER ==
[2021-01-01 17:32] VITALS: RESP 18
--- NOTE | 2021-01-01 20:05 | ED ---
General Adult HPI - General Chief complaint: Upper Respiratory Infection Stated complaint: Cough Source: patient Mode of arrival: ambulatory Limitations: no limitations - History of Present Illness Initial comments: 30-year-old female presents emergency room with reported nasal congestion and cough for the past week. She has been taking Mucinex and Sudafed for her symptoms. Denies any improvement. No sick contacts. Denies concern for Covid. Patient is not vaccinated. Denies any chest pain or shortness of breath. No nausea or vomiting. Denies concern for . No underlying lung conditions. Patient has not taken any antipyretics. No reported fevers. No other alleviating, precipitating or modifying factors - Related Data Previous Rx's Medication Instructions Recorded ALPRAZolam [Xanax] 0.5 mg PO BID PRN #10 tablet 11/27/16 Ibuprofen [Motrin] 600 mg PO Q6HR PRN #20 tab 05/09/17 Orphenadrine [Norflex] 100 mg PO Q12H #10 tablet.er 05/09/17 Cyclobenzaprine [Flexeril] 10 mg PO TID #15 tab 05/13/17 traMADol HCl [Ultram] 50 mg PO Q6H PRN #15 tab 05/13/17 Cyclobenzaprine [Flexeril] 10 mg PO TID PRN #15 tab 04/04/18 predniSONE 50 mg PO DAILY #5 tab 04/04/18 Ibuprofen [Motrin] 600 mg PO Q8HR PRN #20 tab 04/20/19 Orphenadrine [Norflex] 100 mg PO Q12H #14 tablet.er 04/20/19 Albuterol Inhaler [Ventolin Hfa 2 puff INHALATION RT-QID #1 inhaler 01/01/21 Inhaler] Benzonatate [Tessalon Perles] 100 mg PO TID PRN #20 capsule 01/01/21 Allergies Allergy/AdvReac Type Severity Reaction Status Date / Time cefaclor [From Ceclor] Allergy Unknown Verified 01/01/21 17:32 Childhood diphenhydramine Allergy Unknown Verified 01/01/21 17:32 [From Benadryl] Childhood gluten Allergy Unknown Verified 01/01/21 17:32 Review of Systems ROS Statement: Those systems with pertinent positive or pertinent negative responses have been documented in the HPI. ROS Other: All systems not noted in ROS Statement are negative. Past Medical History Past Medical History: No Reported History History of Any Multi-Drug Resistant Organisms: MRSA Date of last positivie culture/infection: 2014 MDRO Source:: Right arm Past Surgical History: Tonsillectomy Additional Past Surgical History / Comment(s): Lumbar back pain Past Psychological History: Anxiety Smoking Status: Never smoker Past Alcohol Use History: Occasional Past Drug Use History: None Reported General Exam Limitations: no limitations Course Vital Signs 01/01/21 01/01/21 01/01/21 17:30 18:06 20:26 Temperature 97.7 F 98.8 F Pulse Rate 78 74 Respiratory 18 18 18 Rate Blood Pressure 103/66 122/70 O2 Sat by Pulse 96 97 Oximetry Medical Decision Making - Medical Decision Making Upon arrival patient is placed into room 33. There are history and physical exam was performed. Cepheid testing performed and patient is negative for influenza and Covid. I did discuss the diagnosis and treatment options. Recommended treatment with albuterol inhaler and Tessalon Perles. Patient may continue taking Mucinex and Sudafed as directed. Follow up with primary care physician for reevaluation. Return to the emergency room for any new or worsening symptoms. Patient was discharged with stable condition - Lab Data Lab Results 01/01/21 Range/Units 18:36 Influenza Type A (PCR) Not Detected (Not Detectd) Influenza Type B (PCR) Not Detected (Not Detectd) RSV (PCR) Not Detected (Not Detectd) SARS-CoV-2 (PCR) Not Detected (Not Detectd) Disposition Clinical Impression: Cough Disposition: HOME SELF-CARE Condition: Stable Instructions (If sedation given, give patient instructions): Upper Respiratory Infection (ED) Additional Instructions: Use the inhaler every 4 hours. You can continue taking Mucinex and Sudafed. Return to the ED for any new or worsening symptoms. Prescriptions: Benzonatate [Tessalon Perles] 100 mg PO TID PRN #20 capsule PRN Reason: Cough Albuterol Inhaler [Ventolin Hfa Inhaler] 2 puff INHALATION RT-QID #1 inhaler Is patient prescribed a controlled substance at d/c from ED?: No Referrals: None,Stated [Primary Care Provider] - 1-2 days Time of Disposition: 20:05
[2021-01-01 20:27] VITALS: BP 122/70; PULSE 74; TEMP 98.8
== END 2021-01-01 20:27 | disposition home or self-care (01) ==
LOC: EC 17:22
DX: R05 Cough (principal); R09.81 Nasal congestion; Z20.822 Contact with and (suspected) exposure to COVID-19; F41.9 Anxiety disorder, unspecified
CPT/HCPCS: 87636; 99283